=== PATIENT | female | born 1990 | race Caucasian/White ===

== ENCOUNTER 2020-11-22 11:37 | Emergency (ER) | payer SELFPAY ==
[~2020-11-22] VITALS: Ht 170.2 cm; Wt 104.5 kg
[2020-11-22] MEDS ORDERED: HYDR-1179 PO (12:11)
[2020-11-22] MEDS ORDERED: AMOX500T PO (12:11)
--- NOTE | 2020-11-22 12:12 | PHYS DOC ---
Past History Past Medical History: No Pertinent History Past Surgical History: No Surgical History Alcohol Use: Occasionally Adult General Chief Complaint Chief Complaint: DENTAL PROBLEM HPI HPI Patient is a 30-year-old female presenting for right ear and right-sided dental pain. Onset was first noticed this morning. Patient reports having deep right ear pain with migration to right posterior and right scalp. Nothing known makes better, she has attempted to take 600 mg ibuprofen without significant relief. Patient reports chewing and cold p.o. intake makes worse. Timing of symptoms has been consistent since onset this morning and worsening. Denies any trauma. Has history of poor dentition and dental caries in the past, she has not established with a dentist. No fever, chills, motor or sensory deficits, neurologic deficits etc. Review of Systems Review of Systems Fourteen body systems of review of systems have been reviewed. See HPI for per tinent positives and negative responses, other aiken all other systems are negative, non-pertinent or non-contributory Allergies Allergies Allergies Coded Allergies Type Severity Reaction Last Updated Verified topiramate Allergy Unknown 11/22/20 Yes Physical Exam Physical Exam General: Appears well, non toxic, and appears in acute pain Skin: Warm, dry. Normal for ethnicity. Head: Atraumatic. EENT: PERRLA. Moist mucous membranes. Uvula midline. No trismus. Maintaining secretions. No phonation changes. No facial swelling. No periapical abscess but increased erythema and numerous dental cavities noted at teeth #2, 3, 31 without signs of acute infection and/or developing abscess. Patient's right ear canal is inflamed and erythematous and grossly tender with otoscope he, tympanic membrane is bulging with loss of cone of light consistent with acute infection Neck: Trachea midline. Normal ROM. No stridor. Respiratory: Normal WOB. No tachypnea. Cardiovascular: Normal peripheral perfusion. Musculoskeletal: Normal ROM. Neuro: Alert and oriented x 4. MAEE. Lymph: No cervical LAD. Psych: Anxious affect and mood Current Patient Data Vital Signs Vital Signs Date Time Temp Pulse Resp B/P (MAP) Pulse Ox O2 Delivery O2 Flow Rate FiO2 11/22/20 11:37 97.5 86 18 151/105 (120) 99 Room Air EKG EKG [] Radiology/Procedures Radiology/Procedures [] Heart Score C/O Chest Pain: No Risk Factors: Risk Factors: DM, Current or recent (<one month) smoker, HTN, HLP, family history of CAD, obesity. Risk Scores: Risk Factors: DM, Current or recent (<one month) smoker, HTN, HLP, family history of CAD, obesity. Course & Med Decision Making Course & Med Decision Making Hemodynamically stable patient with history and physical exam consistent with acute otitis media of right ear and pulpitis with noninfected dental caries Given clinical scenario, patient given amoxicillin while in ER and tolerated this well with subsequent prescription given. [place] 7.5 and extremely short- term dose of this was also given for severe pain Patient to call dentist today in follow-up for evaluation and definitive management for her dental caries Strict return precautions were discussed with good understanding by patient, all questions and concerns addressed prior to ER departure in stable condition Dragon Disclaimer Dragmine Disclaimer This electronic medical record was generated, in whole or in part, using a voice recognition dictation system. Departure Departure: Impression: Primary Impression: Otitis media of right ear Additional Impressions: Pulpitis Dental caries Disposition: HOME SELF CARE/HOMELESS Condition: STABLE Referrals: PCP,NO (PCP) Patient Instructions: Dental Abscess, Otitis Media, Adult Additional Instructions: You were seen for dental pain. There does not appear to be any infection at this time. Nonetheless, you do have findings consistent with right inner ear infection that will require antibiotics. Please take these as prescribed to completion. Take Ibuprofen (600-800mg) and Tylenol (500-650mg) alternating every 4-6 hours to help with inflammation and pain while you contact a dentist for further care. You should return to the ED if you develop worsening pain, fever > 101, swelling, redness, or any other new or concerning symptoms. Unfortunately, your pain is not likely to improve without seeing a dentist for further evaluation and treatment of your poor dentition and dental caries. Scripts Hydrocodone/Ibuprofen (HYDROCODONE-IBUPROFEN 7.5-200 ) 1 Each Tablet 1 TAB PO PRN Q6HRS PRN for PAIN, #12 TAB 0 Refills Prov: JACOBY JOHN DO 11/22/20 Amoxicillin (AMOXICILLIN) 500 Mg Tablet 1 TAB PO TID for OTITIS MEDIA for 7 Days, #20 TAB Prov: JACOBY JOHN DO 11/22/20 Problem Qualifiers JACOBY JOHN DO Nov 22, 2020 12:12
[2020-11-22] MEDS ORDERED: HYDROcodone/APAP 7.5/325MG 1 TAB TABLET PO ONE (12:15)
[2020-11-22] MEDS ORDERED: AMOXICILLIN 250 MG CAPSULE PO ONE (12:15)
[2020-11-22 12:23] VITALS: BP 128/99
== END 2020-11-22 12:25 | disposition home or self-care (01) ==
LOC: ER 11:37
DX: K02.9 Dental caries, unspecified (principal); K04.01 Reversible pulpitis; H66.91 Otitis media, unspecified, right ear; Z88.8 Allergy status to other drugs, medicaments and biological substances
CPT/HCPCS: 99281; 99283

== ENCOUNTER → 2021-10-10 | Emergency (ER) | payer SELFPAY ==
[~2021-10-10] VITALS: Ht 170.2 cm; Wt 105.0 kg
[~2021-10-10] MED LIST: AMOX500T PO; CEPH500C PO; CEPHALEXIN 250 MG CAPSULE PO ONE; HYDR-1179 PO; PHENAZOPYRIDINE 200 MG TABLET. PO ONE
--- NOTE | 2021-10-10 17:59 | PHYS DOC ---
Past History Past Medical History: No Pertinent History (JEFF MALCOLM) Past Surgical History: No Surgical History (JEFF MALCOLM) Smoking: Cigarettes Alcohol Use: Occasionally Drug Use: None (JEFF MALCOLM) General Adult EDM: Chief Complaint: PAIN ON URINATION HPI: HPI: Patient is a 31 year old female who presents with dysuria and sensation of incomplete voiding. Patient was recently tested at the [facility] for STIs and had a urinalysis performed. She was given Bactrim for antibiotic treatment. She states that her symptoms have not improved since starting the antibiotic yesterday. She has no other complaints at this time. (JEFF MALCOLM) Review of Systems: Review of Systems: ROS negative or noncontributory except as mentioned in HPI. (JEFF MALCOLM) Current Medications: Current Meds: Current Medications Medications (Trade) Dose Ordered Sig/Ej Start Time Stop Time Status Last Admin Dose Admin Cephalexin HCl (Keflex) 500 mg 1X ONCE 10/10/21 17:45 10/10/21 17:50 DC Phenazopyridine HCl (Pyridium) 200 mg 1X ONCE 10/10/21 17:45 10/10/21 17:50 DC (JEFF MALCOLM) Allergies: Allergies: Allergies Coded Allergies Type Severity Reaction Last Updated Verified topiramate Allergy Unknown 11/22/20 Yes (JEFF MALCOLM) Physical Exam: PE: Constitutional: Well developed, well nourished, no acute distress, non-toxic appearance. HENT: Normocephalic, atraumatic, bilateral external ears normal, nose normal. Eyes: EOMI, conjunctiva normal, no discharge. Neck: Normal range of motion, no stridor. Skin: Warm, dry, no erythema, no rash. Extremities: No tenderness, no cyanosis, no clubbing, ROM intact, no edema. Neurologic: Alert and oriented x4, no focal deficits noted. (JEFF MALCOLM) Current Patient Data: Labs: Laboratory Tests Test 10/10/21 17:16 Urine Collection Type Unknown Urine Color Yellow Urine Clarity Hazy Urine pH 6.5 Urine Specific [place] 1.015 Urine Protein Neg (NEG-TRACE) Urine Glucose (UA) Neg mg/dL (NEG) Urine Ketones (Stick) Neg mg/dL (NEG) Urine Blood Trace (NEG) Urine Nitrite Neg (NEG) Urine Bilirubin Neg (NEG) Urine Urobilinogen Dipstick 0.2 mg/dL (0.2 mg/dL) Urine Leukocyte Esterase Large (NEG) Urine RBC Occ /HPF (0-2) Urine WBC 20-40 /HPF (0-4) Urine Squamous Epithelial Cells Few /LPF Urine Bacteria Few /HPF (0-FEW) Vital Signs: Vital Signs Date Time Temp Pulse Resp B/P (MAP) Pulse Ox O2 Delivery O2 Flow Rate FiO2 10/10/21 18:03 98.7 98 18 155/87 (109) 98 Room Air (JEFF MALCOLM) Heart Score: C/O Chest Pain: No (JEFF MALCOLM) Course & Med Decision Making: Course & Med Decision Making Pertinent Labs and Imaging studies reviewed. (See chart for details) Patient is a 31-year-old female with known UTI who presents with continued symptoms after starting Bactrim. Local resistance as above 25% to Bactrim, so antibiotic will be switched to Keflex today. Patient also provided with Azo here in the department. She was given return precautions. Patient understands and is agreeable to discharge plan. (JEFF MALCOLM) Dragon Disclaimer: Dragon Disclaimer: This electronic medical record was generated, in whole or in part, using a voice recognition dictation system. (JEFF MALCOLM) Departure Departure: Impression: Primary Impression: Urinary tract infection in female Disposition: 01 HOME / SELF CARE / HOMELESS Condition: IMPROVED Referrals: PCP,NO (PCP) Patient Instructions: Urinary Tract Infection, [id number] Additional Instructions: EMERGENCY DEPARTMENT GENERAL DISCHARGE INSTRUCTIONS Thank you for coming to [facility] (ED) today and trusting us with you care. We trust that you had a positive experience in our Emergency Department. If you wish to speak to the department management, you may call the director at [phone]. YOUR FOLLOW UP INSTRUCTIONS ARE FOLLOWS: 1. Follow up with your primary care doctor. If you do not have a primary doctor, please ask for a resource list of physicians or clinics that may be able to assist you with follow up care. 2. The emergency provider has interpreted your imaging studies, if any were ordered. The radiology offender job retention specialist also reviewed them. If there is a change in the findings, you will be notified in 48 hours when at all possible. 3. If a lab test or culture has been done, your results will be reviewed and you will be notified if you need a change in treatment. 4. Follow instructions verbalized to you and refer to the printouts if needed. ADDITIONAL INSTRUCTIONS AND INFORMATION: 1. Your care today has been supervised by a physician who is specially trained in emergency care. Many problems require more than one evaluation for a complete diagnosis and treatment. We recommend that you schedule your follow up appointment as recommended to ensure complete treatment of you illness or injury. If you are unable to obtain follow up care and continue to have a problem, or if your condition worsens, we recommend that you return to the ED. 2. We are not able to safely determine your condition over the phone nor are we able to give sound medical advice over the phone. For these safety reasons, if you call for medical advice we will ask you to come to the ED for further evaluation. 3. If you have any questions regarding these discharge instructions please call the ED at [phone]. SAFETY INFORMATION: In the interest of safety, wellness, and injury prevention; we encourage you to wear your seat belt, if you smoke; quite smoking, and we encourage family to use a protective helmet for bicycling and other sporting events that present an increased risk for head injury. IF YOUR SYMPTOMS WORSEN OR NEW SYMPTOMS DEVELOP, OR YOU HAVE CONCERNS ABOUT YOUR CONDITION; OR IF YOUR CONDITION WORSENS WHILE YOU ARE WAITING FOR YOUR FOLLOW UP APPOINTMENT; EITHER CONTACT YOUR PRIMARY CARE DOCTOR, THE PHYSICIAN WHOSE NAME AND NUMBER YOU WERE GIVEN, OR RETURN TO THE ED IMMEDIATELY. Scripts Cephalexin (KEFLEX) 500 Mg Capsule 1 CAP PO TID for UTI, #9 CAP Prov: JEFF MALCOLM 10/10/21 Attending Signature Attending Signature I have participated in the care of this patient and I have reviewed and agree with all pertinent clinical information above including history, exam, and recommendations. (DARYL MAGANA MD) JEFF MALCOLM Oct 10, 2021 17:59 DARYL MAGANA MD Oct 15, 2021 02:32
[2021-10-10 18:03] VITALS: BP 155/87
[2021-10-10 18:11] LABS: BACTERIA,URINE FEW /HPF (0-FEW); BILIRUBIN,URINE NEG (NEG); CLARITY,URINE HAZY; COLOR,URINE YELLOW; GLUCOSE,URINE NEG (NEG); NITRITE,URINE NEG (NEG); RBC,URINE OCC /HPF (0-2); SQUAMOUS EPITHELIAL CELL,UR FEW /LPF; UROBILINOGEN,URINE 0.2 mg/dL (0.2 mg/dL); WBC,URINE 20-40 /HPF (0-4)
== END | disposition home or self-care (01) ==
LOC: ER 17:11
DX: N39.0 Urinary tract infection, site not specified (principal); F17.210 Nicotine dependence, cigarettes, uncomplicated; Z88.8 Allergy status to other drugs, medicaments and biological substances
CPT/HCPCS: 81001; 87086; 99283

== ENCOUNTER 2021-10-26 19:00 | Emergency (ER) | payer SELFPAY ==
[~2021-10-26] VITALS: Ht 170.2 cm; Wt 107.0 kg
[~2021-10-26 19:00] MED LIST changes: -CEPHALEXIN 250 MG CAPSULE PO ONE; -PHENAZOPYRIDINE 200 MG TABLET. PO ONE
--- NOTE | 2021-10-26 19:15 | PHYS DOC ---
Past History Past Medical History: No Pertinent History, Sciatica, UTI Past Surgical History: No Surgical History Smoking: Cigarettes Alcohol Use: Occasionally Drug Use: None General Adult EDM: Chief Complaint: FLANK PAIN HPI: HPI: ".. I have bilateral flank pain. .. I like when I ve had kidney stones befor e... ' Patient is a 31 year old female who presents with above hx and complaints of flank pain. Patient has had previous history of kidney stones. Patient has had history of STDs and UTI. Patient only treated for STD at [facility] department. Patient course treatment was started and . Patient currently not on any antibiotics. Patient denies any recent travel. Patient denies of sick ill contacts. Patient denies any history immunosuppression. Patient normally follows with [facility] for her care. Patient does have a past medical history of bipolar disorder, UTIs, renal stones, and constipation. Review of Systems: Review of Systems: Constitutional: Denies fever or chills Eyes: Denies change in visual acuity HENT: Denies nasal congestion or sore throat Respiratory: Denies cough or shortness of breath Cardiovascular: Denies chest pain or edema GI: Complains of lower flank and abdominal pain, nausea,. Denies vomiting, bloody stools or diarrhea : Denies dysuria Musculoskeletal: Denies back pain or joint pain Integument: Denies rash Neurologic: Denies headache, focal weakness or sensory changes Endocrine: Denies polyuria or polydipsia Lymphatic: Denies swollen glands Psychiatric: Denies depression or anxiety Family History: Family History: Noncontributory to presentation Current Medications: Current Meds: See nursing for home meds Allergies: Allergies: Allergies Coded Allergies Type Severity Reaction Last Updated Verified topiramate Allergy Unknown 11/22/20 Yes Physical Exam: PE: Constitutional: Moderate acute distress, non-toxic appearance. [] HENT: Normocephalic, atraumatic, bilateral external ears normal, oropharynx moist, no oral exudates, nose normal. [] Eyes: PERRLA, EOMI, conjunctiva normal, no discharge. [] Neck: Normal range of motion, no tenderness, supple, no stridor. [] Cardiovascular:Heart rate regular rhythm, no murmur [] Lungs & Thorax: Bilateral breath sounds equal and apex on auscultation [] Abdomen: Bowel sounds normal, soft, lower pelvic tenderness, no masses, no pulsatile masses. Declines pelvic exam at this time. Skin: Warm, dry, no erythema, no rash. [] Back: Lower back tenderness, no CVA tenderness. [] Extremities: No tenderness, no cyanosis, no clubbing, ROM intact, no edema. [] Neurologic: Alert and oriented X 3, normal motor function, normal sensory function, no focal deficits noted. [] Psychologic: Affect normal, judgement normal, mood normal. [] EKG: EKG: [] Radiology/Procedures: Radiology/Procedures: [] Heart Score: C/O Chest Pain: N/A Risk Factors: Risk Factors: DM, Current or recent (<one month) smoker, HTN, HLP, family history of CAD, obesity. Risk Scores: Score 0 - 3: 2.5% MACE over next 6 weeks - Discharge Home Score 4 - 6: 20.3% MACE over next 6 weeks - Admit for Clinical Observation Score 7 - 10: 72.7% MACE over next 6 weeks - Early Invasive Strategies Course & Med Decision Making: Course & Med Decision Making Pertinent Labs and Imaging studies reviewed. (See chart for details) Pt. to push vitamin C drinks. Take Keflex 500 mg 4 times a day. Take Diflucan 100 mg daily after completing antibiotics for 3 days. Follow up pending cu ltures. May use Tylenol and Ibuprofen for pain. Patient reports marked improvement of discomfort at time of discharge. Impression: 1. UTI 2. Pyelonephritis 3. Leukocytosis 13.7 [] Dragon Disclaimer: Dragon Disclaimer: This electronic medical record was generated, in whole or in part, using a voice recognition dictation system. Departure Departure: Referrals: PCP,NO (PCP) Scripts Fluconazole (DIFLUCAN) 100 Mg Tablet 100 MG PO DAILY for post completion of antibiotics for 3 Days, #3 TAB Prov: DARYL MAGANA MD 10/26/21 Cephalexin (KEFLEX) 500 Mg Capsule 1 CAP PO QID for uti for 10 Days, #40 CAP Prov: DARYL MAGANA MD 10/26/21 Oswald Disclaimer This chart was dictated in whole or in part using Voice Recognition software in a busy, high-work load, and often noisy Emergency Department environment. It may contain unintended and wholly unrecognized errors or omissions. Dragon Disclaimer This chart was dictated in whole or in part using Voice Recognition software in a busy, high-work load, and often noisy Emergency Department environment. It may contain unintended and wholly unrecognized errors or omissions. DARYL MAGANA MD Oct 26, 2021 19:14
[2021-10-26 20:30] LABS: BARBITURATES NEG (NEG); BENZODIAZEPINES NEG (NEG); CANNABINOIDS NEG (NEG); COCAINE NEG (NEG); METHADONE NEG (NEG); OPIATES NEG (NEG); PHENCYCLIDINE NEG (NEG)
[2021-10-26 20:31] LABS: CLARITY,URINE CLOUDY
[2021-10-26 20:32] LABS: BACTERIA,URINE MOD /HPF (0-FEW); COLOR,URINE ORANGE; SQUAMOUS EPITHELIAL CELL,UR MOD /LPF; WBC,URINE >40 /HPF (0-4)
[2021-10-26 20:37] LABS: AMPHETAMINE/METHAMPHETAMINE NEG (NEG)
[2021-10-26] MEDS ORDERED: cefTRIAXone SODIUM 1 GM VIAL ONE (20:52)
[2021-10-26] MEDS ORDERED: IV NORMAL SALINE 50ML 50 ML ONE (20:52)
[2021-10-26] MEDS ORDERED: FLUC100T7 PO (20:56)
[2021-10-26] MEDS ORDERED: CEPH500C PO (20:56)
[2021-10-26] MEDS ORDERED: KETOROLAC 30 MG/ML VIAL. IVP ONE (21:00)
[2021-10-26] MEDS ORDERED: metroNIDAZOLE 500 MG TABLET PO ONE (21:00)
[2021-10-26] MEDS ORDERED: AZITHROMYCIN 250 MG TABLET. PO ONE (21:00)
[2021-10-26] MEDS ORDERED: IV RINGERS SOLUTION,LACTATED 1,000 ML IV ONE (21:00)
[2021-10-26] MEDS ORDERED: ONDANSETRON ODT 4 MG TAB.RAPDIS PO ONE (21:00)
[2021-10-26 21:37] LABS: CALCIUM 8.7 mg/dL (8.5-10.1); CREATININE 0.7 mg/dL (0.6-1.0); GFR 96.4; POTASSIUM 3.4 mmol/L (3.5-5.1)
[2021-10-26 21:39] LABS: BASO # 0.1 x10^3/uL (0.0-0.2); BASO % 1 % (0-3); EOS # 0.4 x10^3/uL (0.0-0.7); EOS % 3 % (0-3); HEMATOCRIT 38.7 % (36.0-47.0); HEMOGLOBIN 12.6 g/dL (12.0-15.5); LYMPH # 2.7 x10^3/uL (1.0-4.8); LYMPH % 20 % (24-48); MEAN CORPUSCULAR HEMOGLOBIN 27 pg (25-35); MEAN CORPUSCULAR HGB CONC 33 g/dL (31-37); MEAN CORPUSCULAR VOLUME 84 fL (79-100); MONO # 1.1 x10^3/uL (0.0-1.1); MONO % 8 % (0-9); NEUT # 9.3 x10^3uL (1.8-7.7); NEUT % 68 % (31-73); PLATELET COUNT 318 x10^3/uL (140-400); RED BLOOD COUNT 4.61 x10^6/uL (3.50-5.40); RED CELL DISTRIBUTION WIDTH 15.1 % (11.5-14.5); WHITE BLOOD COUNT 13.7 x10^3/uL (4.0-11.0)
[2021-10-26 21:43] LABS: ALBUMIN 3.6 g/dL (3.4-5.0); DIRECT BILIRUBIN 0.1 mg/dL (0.0-0.2); TOTAL BILIRUBIN 0.3 mg/dL (0.2-1.0)
[2021-10-26 22:35] VITALS: BP 118/86
== END 2021-10-26 22:35 | disposition home or self-care (01) ==
LOC: ER 19:00
DX: N12 Tubulo-interstitial nephritis, not specified as acute or chronic (principal); N39.0 Urinary tract infection, site not specified; D72.829 Elevated white blood cell count, unspecified; F17.210 Nicotine dependence, cigarettes, uncomplicated; F31.9 Bipolar disorder, unspecified; Z87.440 Personal history of urinary (tract) infections; Z87.442 Personal history of urinary calculi; Z88.8 Allergy status to other drugs, medicaments and biological substances
CPT/HCPCS: 36415; 80048; 80076; 80307; 81001; 85025; 87040; 87077; 87086; 87186; 96365; 96375; 99284; J0696; J1885; J7120; Q0162